=== PATIENT | female | born 1940 | race Caucasian/White ===

== ENCOUNTER 2016-10-31 10:09 | Emergency (ER) | payer MEDICARE ==
[2016-10-31] MEDS ORDERED: Diazepam TAB(*) 5 MG PO ONE (13:00)
[2016-10-31 13:27] LABS: Hematocrit 45 % (35-47); Hemoglobin 15.2 g/dl (12.0-16.0); Mean Corpuscular HGB Conc 34 g/dl (31-36); Mean Corpuscular Hemoglobin 31 pg (27-31); Mean Corpuscular Volume 91 fL (80-97); Mean Platelet Volume 8 um3 (7.4-10.4); Red Blood Count 4.96 10^6/ul (4.0-5.4); Red Cell Distribution Width 14 % (10.5-15); White Blood Count 6.2 10^3/ul (3.5-10.8)
[2016-10-31 13:42] LABS: Albumin 3.7 g/dL (3.2-5.2); BUN/Creatinine Ratio 41.8 (8-20); C Reactive Protein 6.74 mg/L (< 5.00); Calcium 9.4 mg/dL (8.6-10.3); EGFR African American 110.7 (>60); Globulin 2.5 g/dL (2-4); Potassium 4.2 mmol/L (3.5-5.0); Total Bilirubin 0.4 mg/dL (0.2-1.0); Total Protein 6.2 g/dL (6.4-8.9)
--- NOTE | 2016-10-31 13:49 | RAD ---
Indication: Progressive pain in the right sacroiliac region. CT of the pelvis was obtained in the axial plane. Coronal and sagittal reconstructed images were obtained. The sacroiliac joints are intact. There may be some minimal sclerosis at the margins suggestive of some mild sacroiliitis. No fracture is noted. Degenerative changes of both hips are noted. Osteophyte formation is noted. The sacrum demonstrates diffuse osteopenia. There is an anterior abdominal wall hernia containing colon. This is just inferior to the umbilicus. No definite evidence of bowel obstruction is noted. The uterus and ovaries are grossly unremarkable. IMPRESSION: MILD SACROILIITIS WITH NO EVIDENCE OF FRACTURE PELVIS OR SACRUM. DEGENERATIVE CHANGES OF BOTH HIPS ARE NOTED. IF FURTHER UMBILICAL ANTERIOR ABDOMINAL WALL HERNIA CONTAINING COLON.
--- NOTE | 2016-10-31 13:53 | RAD ---
Indication: Back pain. CT of the lumbar spine was obtained in the axial plane. Sagittal and coronal reconstructed images were obtained. The vertebral bodies appear normal in height. No compression fracture is noted. There may be diffuse osteopenia noted. At L5-S1 there is broad-based protrusion flattening the thecal sac. Moderate facet arthropathy is noted bilaterally. No definite central or foraminal stenosis is noted. At L4-L5 degenerative disc disease, broad-based protrusion flattens the thecal sac. There is moderate degree of facet arthropathy. There may be mild to moderate spinal stenosis at the L4-L5 level. At L3-L4 there is broad-based protrusion flattening the thecal sac. There is no central or foraminal stenosis noted. At L2-L3 there is degenerative disc disease with broad-based procedure flattening the thecal sac. No central or foraminal stenosis is noted. At L1-L2 there is no evidence of focal protrusion. No central or foraminal stenosis is noted. At T12-L1 and L1-L2 no evidence of central or foraminal stenosis is noted. IMPRESSION: L4-L5 BROAD-BASED PROTRUSION, FACET AND LIGAMENTOUS HYPERTROPHY RESULTS IN MILD TO MODERATE SPINAL STENOSIS AT THIS LEVEL. AT L5-S1 BROAD-BASED PROTRUSION FLATTENS THE THECAL SAC WITH MODERATE DEGREE OF FACET ARTHROPATHY. THE REMAINDER OF THE DISC LEVELS DEMONSTRATES MILD DEGENERATIVE DISC DISEASE WITHOUT DEFINITE EVIDENCE OF CENTRAL OR FORAMINAL STENOSIS.
[2016-10-31] MEDS ORDERED: Ketorolac INJ* 30 MG/ML 1 ML VIAL IM ONE (14:02)
[2016-10-31] MEDS ORDERED: Dexamethasone IV* 4 MG/ML 5 ML VIAL (20 MG) IVPB ONE (14:02)
[2016-10-31] MEDS ORDERED: Ketorolac INJ* 30 MG/ML 1 ML VIAL IV PUSH ONE (14:38)
[2016-10-31 16:12] VITALS: BP 118/73
[2016-10-31 16:42] LABS: Urine Bilirubin Negative (Negative); Urine Glucose Negative (Negative); Urine Nitrite Negative (Negative)
--- NOTE | 2016-11-07 23:26 | ED ---
Back Pain - HPI Summary HPI Summary: Pt here w/ Rt low back/side pain/spasm. She has a h/o back issues but today is worse than usual. Was seen at on 10/22 and dx'd w/ sacroiliitis - provided w / NSAID's and muscle relaxers. She was rx'd PT and went this past Thu - felt worse after. No relief w/ either pain med rx'd so doubled up on both meds this morning to help her get here. She's here again today because she wants to know what's going on. Pain is worse w/ transition onto/off of the toilet but also has pain trying to lie flat in bed. She's able to bear weight and denies sx into LE's - denies numbness, tingling, weakness. No change in bowel/bladder habits - both are working well. - History of Current Complaint Chief Complaint: EDBackInjuryPain Stated Complaint: BACK PAIN Time Seen by Provider: 10/31/16 12:30 Hx Obtained From: Patient Pain Intensity: 0 Pain Scale Used: 0-10 Numeric - Allergies/Home Medications Allergies/Adverse Reactions: Allergies Allergy/AdvReac Type Severity Reaction Status Date / Time Penicillins Allergy Intermediate Hives Verified 10/31/16 10:15 Home Medications: Home Medications Acetaminophen TAB* [Tylenol TAB*] 650 mg PO Q6H PRN 10/31/16 [History Confirmed 10/31/16] Meloxicam(NF) [Mobic(NF)] 7.5 mg PO DAILY 10/31/16 [History Confirmed 10/31/16] PMH/Surg Hx/FS Hx/Imm Hx Previously Healthy: No - struggling w/ back pain Endocrine/Hematology History: Denies: Hx Anticoagulant Therapy, Hx Blood Disorders, Autoimmune Disease Cardiovascular History: Denies: Hx Aneurysm GI History: Reports: Hx Gastroesophageal Reflux Disease, Other GI Disorders - hernia repair Musculoskeletal History: Reports: Hx Arthritis, Hx Back Problems - Cancer History Cancer Type, Location and Year: L breast CA Hx Chemotherapy: Yes - BREAST Hx Radiation Therapy: No - Surgical History Surgery Procedure, Year, and Place: L masectomy, hernia, gallbladder, appy, tonsilectomy Infectious Disease History: No Infectious Disease History: Denies: Traveled Outside the [place] in Last 30 Days - Family History Known Family History: Positive: Hypertension - Social History Occupation: Retired Alcohol Use: None Hx Substance Use: No Substance Use Type: Reports: None Hx Tobacco Use: Yes Smoking Status (MU): Former Smoker Type: Cigarettes Length of Time of Smoking/Using Tobacco: 34 years ago Review of Systems Negative: Fever, Chills, Fatigue Negative: Palpitations, Chest Pain Negative: Shortness Of Breath, Cough Negative: Abdominal Pain, Vomiting, Diarrhea, Nausea Negative: burning, dysuria, discharge, frequency, hematuria, incontinence, pain , urgency Musculoskeletal: Other - see HPI Negative: Rash, Bruising Negative: Weakness, Paresthesia, Numbness Positive: Anxious All Other Systems Reviewed And Are Negative: Yes Physical Exam Triage Information Reviewed: Yes Vital Signs On Initial Exam: Initial Vitals Temp Pulse Resp BP Pulse Ox 98.3 F 77 16 148/81 98 10/31/16 10:11 10/31/16 10:11 10/31/16 10:11 10/31/16 10:11 10/31/16 10:11 Vital Signs Reviewed: Yes Appearance: Positive: Well-Appearing, Pain Distress - appears somewhat uncomfortable lying on stretcher Skin: Positive: Warm, Dry - no erythema, no ecchymosis, no lesions Head/Face: Positive: Normal Head/Face Inspection Eyes: Positive: Normal, EOMI, Conjunctiva Clear ENT: Positive: Hearing grossly normal, Pharynx normal Respiratory/Lung Sounds: Positive: Breath Sounds Present Cardiovascular: Positive: Normal, RRR, Pulses are Symmetrical in both Upper and Lower Extremities. Negative: Leg Edema Left, Leg Edema Right Abdomen Description: Positive: Nontender, Soft Bowel Sounds: Positive: Present Musculoskeletal: Positive: Strength/ROM Intact - moving LE's but has Rt lower back pain Neurological: Positive: Normal, Sensory/Motor Intact, Alert, Oriented to Person Place, Time, CN Intact II-III, Reflexes Intact Psychiatric: Positive: Normal - concerned Diagnostics - Vital Signs Vital Signs Temp Pulse Resp BP Pulse Ox 10/31/16 16:27 84 17 10/31/16 16:11 84 17 118/73 95 10/31/16 13:10 16 10/31/16 10:11 98.3 F 77 16 148/81 98 - Laboratory Lab Results: Lab Results 10/31/16 10/31/16 10/31/16 Range/Units 13:15 13:15 13:15 WBC 6.2 (3.5-10.8) 10^3/ul RBC 4.96 (4.0-5.4) 10^6/ul Hgb 15.2 (12.0-16.0) g/dl Hct 45 (35-47) % MCV 91 (80-97) fL MCH 31 (27-31) pg MCHC 34 (31-36) g/dl RDW 14 (10.5-15) % Plt Count 188 (150-450) 10^3/ul MPV 8 (7.4-10.4) um3 Neut % (Auto) 77.9 (38-83) % Lymph % (Auto) 13.1 L (25-47) % Price % (Auto) 5.4 (1-9) % Eos % (Auto) 2.8 (0-6) % Baso % (Auto) 0.8 (0-2) % Absolute Neuts (auto) 4.8 (1.5-7.7) 10^3/ul Absolute Lymphs (auto) 0.8 L (1.0-4.8) 10^3/ul Absolute Monos (auto) 0.3 (0-0.8) 10^3/ul Absolute Eos (auto) 0.2 (0-0.6) 10^3/ul Absolute Basos (auto) 0 (0-0.2) 10^3/ul Absolute Nucleated RBC 0 10^3/ul Nucleated RBC % 0 Sodium 139 (133-145) mmol/L Potassium 4.2 (3.5-5.0) mmol/L Chloride 108 (101-111) mmol/L Carbon Dioxide 29 (22-32) mmol/L Anion Gap 2 (2-11) mmol/L BUN 28 H (6-24) mg/dL Creatinine 0.67 (0.51-0.95) mg/dL Est GFR ( Amer) 110.7 (>60) Est GFR (Non-Af Amer) 86.0 (>60) BUN/Creatinine Ratio 41.8 H (8-20) Glucose 93 (70-100) mg/dL Lactic Acid 0.6 (0.5-2.0) mmol/L Calcium 9.4 (8.6-10.3) mg/dL Total Bilirubin 0.40 (0.2-1.0) mg/dL AST 16 (13-39) U/L ALT 18 (7-52) U/L Alkaline Phosphatase 50 (34-104) U/L C-Reactive Protein 6.74 H (< 5.00) mg/L Total Protein 6.2 L (6.4-8.9) g/dL Albumin 3.7 (3.2-5.2) g/dL Globulin 2.5 (2-4) g/dL Albumin/Globulin Ratio 1.5 (1-3) Urine Color Urine Appearance Urine pH (5-9) Ur Specific [place] (1.010-1.030) Urine Protein (Negative) Urine Ketones (Negative) Urine Blood (Negative) Urine Nitrate (Negative) Urine Bilirubin (Negative) Urine Urobilinogen (Negative) Ur Leukocyte Esterase (Negative) Urine Glucose (Negative) 10/31/16 Range/Units 15:15 WBC (3.5-10.8) 10^3/ul RBC (4.0-5.4) 10^6/ul Hgb (12.0-16.0) g/dl Hct (35-47) % MCV (80-97) fL MCH (27-31) pg MCHC (31-36) g/dl RDW (10.5-15) % Plt Count (150-450) 10^3/ul MPV (7.4-10.4) um3 Neut % (Auto) (38-83) % Lymph % (Auto) (25-47) % Price % (Auto) (1-9) % Eos % (Auto) (0-6) % Baso % (Auto) (0-2) % Absolute Neuts (auto) (1.5-7.7) 10^3/ul Absolute Lymphs (auto) (1.0-4.8) 10^3/ul Absolute Monos (auto) (0-0.8) 10^3/ul Absolute Eos (auto) (0-0.6) 10^3/ul Absolute Basos (auto) (0-0.2) 10^3/ul Absolute Nucleated RBC 10^3/ul Nucleated RBC % Sodium (133-145) mmol/L Potassium (3.5-5.0) mmol/L Chloride (101-111) mmol/L Carbon Dioxide (22-32) mmol/L Anion Gap (2-11) mmol/L BUN (6-24) mg/dL Creatinine (0.51-0.95) mg/dL Est GFR ( Amer) (>60) Est GFR (Non-Af Amer) (>60) BUN/Creatinine Ratio (8-20) Glucose (70-100) mg/dL Lactic Acid (0.5-2.0) mmol/L Calcium (8.6-10.3) mg/dL Total Bilirubin (0.2-1.0) mg/dL AST (13-39) U/L ALT (7-52) U/L Alkaline Phosphatase (34-104) U/L C-Reactive Protein (< 5.00) mg/L Total Protein (6.4-8.9) g/dL Albumin (3.2-5.2) g/dL Globulin (2-4) g/dL Albumin/Globulin Ratio (1-3) Urine Color Yellow Urine Appearance Clear Urine pH 6.0 (5-9) Ur Specific [place] 1.014 (1.010-1.030) Urine Protein Negative (Negative) Urine Ketones Negative (Negative) Urine Blood Negative (Negative) Urine Nitrate Negative (Negative) Urine Bilirubin Negative (Negative) Urine Urobilinogen Negative (Negative) Ur Leukocyte Esterase Negative (Negative) Urine Glucose Negative (Negative) Result Diagrams: 10/31/16 13:15 10/31/16 13:15 Lab Statement: Any lab studies that have been ordered have been reviewed, and results considered in the medical decision making process. Re-Evaluation - Re-Evaluation First Eval Change: Improved Back Pain Course/Dx - Course Course Of Treatment: 76 y.o. female presents w/ Rt sided LBP x weeks, progresively worsening since PT this week. L4-5, L5-S1 w/ broad based protrusion on lumbar CT. Mild sacroiliits and B/L degenerative changes in hips. Sx improved w/ steroids and pain meds. She is able to go home bearing weight and carrying basic ADL's (observed toileting w/o difficulty independently ). Will f/u w/ PCP for re-evaluation and long tx plan. Reviewed danger s/sx of when to return to ED. Pt agrees w/ plan and voices understanding. - Diagnoses Provider Diagnoses: LUMBAR DISC HERNIATION, Arthritis of sacroiliac joint, Degenerative joint disease of both hips Discharge - Discharge Plan Condition: Stable Disposition: HOME Prescriptions: Diazepam TAB(*) [Valium TAB(*)] 5 mg PO BEDTIME PRN #9 tab MDD 1 PRN Reason: Pain predniSONE TAB* [Deltasone TAB*] 40 mg PO DAILY #5 tab Patient Education Materials: Lumbar Disc Herniation (ED) Referrals: Becki Denis MD [Primary Care Provider] - Additional Instructions: Take medications as directed - do not overexert yourself as you have a herniated disc. Follow-up with PCP Thursday as schedule - you may benefit from an MRI and neurosurgery consult *If you develop incontinence of your bladder or bowels and/or weakness in lower extremities, return to ED
== END 2016-10-31 16:27 | disposition home or self-care (01) ==
LOC: ED 10:09
DX: M51.26 Other intervertebral disc displacement, lumbar region (principal); M46.1 Sacroiliitis, not elsewhere classified; M16.0 Bilateral primary osteoarthritis of hip
CPT/HCPCS: 36415; 72131; 72192; 80053; 81003; 83605; 85025; 86140; 96365; 96372; 96374; 96375; 99282; A9270-GY; J1100; J1885

== ENCOUNTER 2017-01-12 19:31 | Emergency (ER) | payer MEDICARE ==
[2017-01-12 19:47] VITALS: BP 139/81
--- NOTE | 2017-01-12 20:47 | UC ---
Ear Complaint HPI - HPI Summary HPI Summary: TOOK HALF OF A MOLDABLE EAR PLUG INTO EAR, SHOVED IT TOO FAR DOWN INTO EAR YESTERDAY, CANNOT GET IT OUT. NO FEVER. NO EAR PAIN. - History of Current Complaint Hx Obtained From: Patient Onset/Duration: Sudden Onset, Lasting Days, Still Present Severity Initially: Mild Severity Currently: Mild Pain Intensity: 0 Pain Scale Used: 0-10 Numeric Associated Signs/Symptoms: Positive: Hearing Loss, Foreign Body Sensation <Jewel Joyce - Last Filed: 01/12/17 20:42> <Saul Mock - Last Filed: 01/15/17 11:09> - History of Current Complaint Chief Complaint: UCEar Stated Complaint: FB IN EAR Time Seen by Provider: 01/12/17 19:41 - Allergies/Home Medications Allergies/Adverse Reactions: Allergies Allergy/AdvReac Type Severity Reaction Status Date / Time Penicillins Allergy Intermediate Hives Verified 10/31/16 10:15 Home Medications: Home Medications Etodolac 300 mg PO 01/12/17 [History] PMH/Surg Hx/FS Hx/Imm Hx Previously Healthy: Yes Endocrine History Of: Denies: Diabetes, Thyroid Disease Cardiovascular History Of: Denies: Cardiac Disorders, Hypertension Respiratory History Of: Denies: COPD, Asthma GI/ History Of: Denies: Ulcer Cancer History Of: Reports: Breast Cancer - LEFT 08/06 Other History Of: Negative For: Anticoagulant Therapy - Surgical History Surgical History: Yes Surgery Procedure, Year, and Place: L masectomy, hernia, gallbladder, appy, tonsilectomy - Family History Known Family History: Positive: Hypertension - Social History Occupation: Retired Lives: With Family Alcohol Use: None Substance Use Type: None Smoking Status (MU): Former Smoker Type: Cigarettes Length of Time of Smoking/Using Tobacco: 34 years ago <Jewel Joyce - Last Filed: 01/12/17 20:42> Review of Systems Constitutional: Negative Skin: Negative Eyes: Negative ENT: Ear Ache Respiratory: Negative Cardiovascular: Negative Gastrointestinal: Negative Genitourinary: Negative Motor: Negative Neurovascular: Negative Musculoskeletal: Negative Neurological: Negative Psychological: Negative All Other Systems Reviewed And Are Negative: Yes <Jewel Joyce - Last Filed: 01/12/17 20:42> Physical Exam Triage Information Reviewed: Yes Appearance: Well-Appearing, No Pain Distress, Well-Nourished Vital Signs: Initial Vital Signs Temp 97.8 F 01/12/17 19:43 Pulse 78 01/12/17 19:43 Resp 18 01/12/17 19:43 BP 139/81 01/12/17 19:43 Pulse Ox 98 01/12/17 19:43 Eye Exam: Normal Eyes: Positive: Conjunctiva Clear ENT: Positive: Hearing grossly normal, Pharynx normal, TMs normal - AFTER FB REMOVAL, Other: - MOLDABLE EAR PLUG REMOVED FROM RIGHT EAR USING ALLIGATOR FORCEPS, AND IRRIGATION. Dental Exam: Normal Neck exam: Normal Neck: Positive: Supple, Nontender, No Lymphadenopathy Respiratory Exam: Normal Respiratory: Positive: Chest non-tender, Lungs clear, Normal breath sounds, No respiratory distress, No accessory muscle use Cardiovascular Exam: Normal Cardiovascular: Positive: RRR, No Murmur, Pulses Normal, Brisk Capillary Refill Abdominal Exam: Normal Abdomen Description: Positive: Nontender, No Organomegaly Musculoskeletal Exam: Normal Musculoskeletal: Positive: Strength Intact, ROM Intact Neurological Exam: Normal Psychological Exam: Normal Psychological: Positive: Normal Response To Family Skin Exam: Normal <Jewel Joyce - Last Filed: 01/12/17 20:42> Vital Signs: Initial Vital Signs Temp 97.8 F 01/12/17 19:43 Pulse 78 01/12/17 19:43 Resp 18 01/12/17 19:43 BP 139/81 01/12/17 19:43 Pulse Ox 98 01/12/17 19:43 <Saul Mock - Last Filed: 01/15/17 11:09> Ear Complaint Course/Dx - Differential Dx/Diagnosis Differential Diagnosis/HQI/PQRI: Cellulitis, Foreign Body, Otitis Externa, Otitis Media, Trauma, URI Provider Diagnoses: FOREIGN BODY REMOVAL (MOLDABLE EAR PLUG) REMOVED FROM RIGHT EXTERNAL AUDITORY CANAL <Jewel Joyce - Last Filed: 01/12/17 20:42> - Course Course Of Treatment: I was available for consultation. This patient was seen by mid level provider. The patient was not presented, seen, or examined by me. WR. <Saul Mock - Last Filed: 01/15/17 11:09> Discharge <Jewel Joyce - Last Filed: 01/12/17 20:42> <Saul Mock - Last Filed: 01/15/17 11:09> - Discharge Plan Condition: Stable Disposition: HOME Patient Education Materials: Ear Foreign Body (ED) Referrals: Becki Denis MD [Primary Care Provider] -
== END 2017-01-12 20:34 | disposition home or self-care (01) ==
LOC: UCEAST 19:31
DX: T16.1XXA Foreign body in right ear, initial encounter (principal); X58.XXXA Exposure to other specified factors, initial encounter; Y93.9 Activity, unspecified; Y92.9 Unspecified place or not applicable; Z90.49 Acquired absence of other specified parts of digestive tract; Z88.0 Allergy status to penicillin; Z87.891 Personal history of nicotine dependence
CPT/HCPCS: 99212; G0463

== ENCOUNTER 2017-06-16 11:05 | Emergency (ER) | payer MEDICARE ==
[2017-06-16] MEDS ORDERED: NS 0.9% 1000 ML* 1,000 ML IV ONE (12:12)
[2017-06-16 13:11] LABS: Hematocrit 45 % (35-47); Hemoglobin 15.1 g/dl (12.0-16.0); Mean Corpuscular HGB Conc 33 g/dl (31-36); Mean Corpuscular Hemoglobin 31 pg (27-31); Mean Corpuscular Volume 93 fL (80-97); Mean Platelet Volume 8 um3 (7.4-10.4); Red Blood Count 4.85 10^6/ul (4.0-5.4); Red Cell Distribution Width 14 % (10.5-15); White Blood Count 11.5 10^3/ul (3.5-10.8)
[2017-06-16 13:18] LABS: Add Diff/Slide Review? Slide Review Added
[2017-06-16 13:30] LABS: ALT 27 U/L (7-52); AST 14 U/L (13-39); Albumin 3.4 g/dL (3.2-5.2); Alkaline Phosphatase 56 U/L (34-104); Anion Gap 4 mmol/L (2-11); BUN/Creatinine Ratio 23.9 (8-20); Blood Urea Nitrogen 17 mg/dL (6-24); C Reactive Protein 179.83 mg/L (< 5.00); CO2 Carbon Dioxide 30 mmol/L (22-32); Calcium 9.4 mg/dL (8.6-10.3); Chloride 103 mmol/L (101-111); EGFR African American 103.2 (>60); EGFR Non-African American 80.3 (>60); Globulin 3.2 g/dL (2-4); Glucose 126 mg/dL (70-100); Lipase < 10 U/L (11.0-82.0); Potassium 3.9 mmol/L (3.5-5.0); Sodium 137 mmol/L (133-145); Total Protein 6.6 g/dL (6.4-8.9)
[2017-06-16] MEDS ORDERED: Iohexol 300* (CONTRAST) 10 ML SDV IV ONE (14:13)
[2017-06-16 14:20] LABS: Urine Bacteria Absent (Absent); Urine Bilirubin Negative (Negative); Urine Glucose Negative (Negative); Urine Nitrite Negative (Negative)
--- NOTE | 2017-06-16 15:14 | RAD ---
INDICATION: Abdominal pain. COMPARISON: Comparison is made with a prior CT of the pelvis from October 31, 2016. TECHNIQUE: A CT scan of the abdomen and pelvis was performed with intravenous and oral contrast following intravenous injection of 112 ml of Omnipaque 300 nonionic contrast. Contiguous axial sections were obtained from the lung bases through the symphysis pubis. Images were reconstructed in the coronal and sagittal planes. FINDINGS: The lung bases are clear. No pleural effusion is present. There is a Bochdalek hernia present at the left lung base containing retroperitoneal fat. The liver is mildly enlarged and decreased in attenuation consistent with fatty infiltration. There is a simple cyst present in the left hepatic lobe measuring 2.8 cm in size. The patient appears to be status post cholecystectomy. The pancreas appears to be within normal limits. The kidneys and adrenal glands are normal in size. No hydronephrosis is seen. No significant focal renal abnormality is seen. The aorta is normal in caliber and demonstrates homogeneous contrast opacification. No significant enlarged retroperitoneal lymph nodes are seen. The stomach, small and large bowel appear nondistended. The patient is status post appendectomy by history. There is moderate sigmoid diverticulosis. There is diffuse thickening of the wall of the sigmoid colon and rectum most consistent with colitis. There is a periumbilical hernia containing nondistended transverse colon which is unchanged from the prior study. There is a mesenteric mass with associated calcification present in the central abdomen with tethering of adjacent small bowel loops. This is irregular in shape measuring 4.2 x 3.0 x 4.5 cm in size. This is unchanged from the prior CT of the pelvis study. The uterus is upper limits of normal in size and anteverted in position. No free intraperitoneal air or fluid is seen. No significant focal osseous abnormality is seen. IMPRESSION: 1. MESENTERIC MASS DIFFERENTIAL DIAGNOSIS WOULD INCLUDE MESENTERIC FIBROSIS VERSUS A MALIGNANT LESION. CONSIDER PET IMAGING AND BIOPSY FOR FURTHER EVALUATION. 2. THICKENING OF THE WALL OF THE SIGMOID COLON AND RECTUM MOST CONSISTENT WITH COLITIS. 3. ANTERIOR ABDOMINAL WALL HERNIA CONTAINING TRANSVERSE COLON, UNCHANGED. 4. HEPATIC STEATOSIS.
[2017-06-16 16:12] VITALS: BP 154/89
--- NOTE | 2017-06-16 20:40 | ED ---
Eugenio Kaba Rebecca, scribed for Saul Real MD on 06/16/17 at 1145 . Abdominal Pain/Female - HPI Summary HPI Summary: Pt is a 76 y/o F who presents to ED c/o abd pain. Pain began 3 days ago and has been intermittent since onset, located in the lower abdomen. Pain is currently not present, though when present, pain is severe, characterized as cramping. Sx aggravated by nothing, alleviated by BM. Additionally c/o constipation. Denies abdominal distension, fever, chills, vomiting. PMHx hernia. PSHx cholecystectomy , appy, hernia repair. - History of Current Complaint Chief Complaint: EDAbdPain Stated Complaint: ABD PAIN Time Seen by Provider: 06/16/17 11:30 Hx Obtained From: Patient Timing: Intermittent Episode Lasting Severity Initially: Severe Severity Currently: None Pain Intensity: 0 Pain Scale Used: 0-10 Numeric Location: Other - Lower abdomen Character: Cramping Aggravating Factor(s): Nothing Alleviating Factor(s): Bowel Movement Associated Signs and Symptoms: Positive: Constipation. Negative: Fever, Vomiting Allergies/Adverse Reactions: Allergies Allergy/AdvReac Type Severity Reaction Status Date / Time Penicillins Allergy Intermediate Hives Verified 06/16/17 11:08 PMH/Surg Hx/FS Hx/Imm Hx Endocrine/Hematology History: Denies: Hx Anticoagulant Therapy, Hx Blood Disorders, Hx Diabetes, Hx Thyroid Disease Cardiovascular History: Denies: Hx Aneurysm, Hx Hypertension Respiratory History: Denies: Hx Asthma, Hx Chronic Obstructive Pulmonary Disease (COPD) GI History: Reports: Hx Gastroesophageal Reflux Disease, Other GI Disorders - hernia repair Denies: Hx Ulcer Musculoskeletal History: Reports: Hx Arthritis, Hx Back Problems - Cancer History Cancer Type, Location and Year: L breast CA Hx Chemotherapy: Yes - BREAST Hx Radiation Therapy: No - Surgical History Surgery Procedure, Year, and Place: L masectomy, hernia, gallbladder, appy, tonsilectomy Infectious Disease History: Denies: Hx Hepatitis, Hx Human Immunodeficiency Virus (HIV), Traveled Outside the [place] in Last 30 Days - Family History Known Family History: Positive: Hypertension, Diabetes - Social History Alcohol Use: None Hx Substance Use: No Substance Use Type: Reports: None Hx Tobacco Use: Yes Smoking Status (MU): Former Smoker Type: Cigarettes Length of Time of Smoking/Using Tobacco: 34 years ago Review of Systems Negative: Fever, Chills Positive: Abdominal Pain - Lower abdomen, Other - Constipation; NEGATIVE: abdominal distension. Negative: Vomiting All Other Systems Reviewed And Are Negative: Yes Physical Exam Triage Information Reviewed: Yes Vital Signs On Initial Exam: Initial Vitals Temp Pulse Resp BP Pulse Ox 97.9 F 100 20 143/81 94 06/16/17 11:08 06/16/17 11:08 06/16/17 11:08 06/16/17 11:08 06/16/17 11:08 Vital Signs Reviewed: Yes Appearance: Positive: Well-Appearing, No Pain Distress Skin: Positive: Warm, Skin Color Reflects Adequate Perfusion Head/Face: Positive: Normal Head/Face Inspection Eyes: Positive: EOMI ENT: Positive: Normal ENT inspection Neck: Positive: Nontender Respiratory/Lung Sounds: Positive: Clear to Auscultation, Breath Sounds Present Cardiovascular: Positive: RRR. Negative: Murmur Abdomen Description: Positive: Other: - abdominal wall hernia right of midline and below level of umbilicus. Not incarcerated. Musculoskeletal: Positive: Strength/ROM Intact Neurological: Positive: Sensory/Motor Intact, Alert, Oriented to Person Place, Time, CN Intact II-III Psychiatric: Positive: Normal - Pedro Coma Scale Best Eye Response: 4 - Spontaneous Best Motor Response: 6 - Obeys Commands Best Verbal Response: 5 - Oriented Diagnostics - Vital Signs Vital Signs Temp Pulse Resp BP Pulse Ox 06/16/17 11:08 97.9 F 100 20 143/81 94 - Laboratory Result Diagrams: 06/16/17 12:55 06/16/17 12:55 Lab Statement: Any lab studies that have been ordered have been reviewed, and results considered in the medical decision making process. - CT CT Abd/Pel CT Interpretation: Positive (See Comments) - 1. MESENTERIC MASS DIFFERENTIAL DIAGNOSIS WOULD INCLUDE MESENTERIC FIBROSIS VERSUS A MALIGNANT LESION. CONSIDER PET IMAGING AND BIOPSY FOR FURTHER EVALUATION. 2. THICKENING OF THE WALL OF THE SIGMOID COLON AND RECTUM MOST CONSISTENT WITH COLITIS. 3. ANTERIOR ABDOMINAL WALL HERNIA CONTAINING TRANSVERSE COLON, UNCHANGED. 4. HEPATIC STEATOSIS. CT Interpretation Completed By: Radiologist - EKG 1242 Cardiac Rate: NL - 92 bpm EKG Rhythm: Sinus Rhythm EKG Interpretation: No STEMI Re-Evaluation - Re-Evaluation First Eval Re-Evaluation Time: 13:49 Change: Improved Comment: Pt reports she has had BM and feels significantly better. Second Eval Re-Evaluation Time: 15:22 Change: Improved Comment: Pt is feeling significantly better, her sx have completely resolved. Abdominal Pain Fem Course/Dx - Course Course Of Treatment: Elevated BP noted and advised to f/u with PCP. She is completely comfortable with a benign abdomen. Will DC her to home. CT finding discussed with Dr Vanessa her PMD. - Diagnoses Provider Diagnoses: Abdominal wall hernia, Mesenteric mass, Constipation, Hypertension - Provider Notifications Discussed Care Of Patient With: Becki Denis Time Discussed With Above Provider: 15:40 Instructed by Provider To: Other - Discussed CT results and she advised D/C and a follow up in her office this week. Discharge - Discharge Plan Condition: Good Disposition: HOME Patient Education Materials: Abdominal Pain (ED) Referrals: Becki Denis MD [Primary Care Provider] - 1 Day Additional Instructions: You have a mesenteric tumor on your ct scan that needs follow up with your doctor this week. Please call Dr Vanessa as soon as possible to see. The documentation as recorded by the Eugenio walker Rebecca accurately reflects the service I personally performed and the decisions made by me, Saul Real MD.
== END 2017-06-16 16:22 | disposition home or self-care (01) ==
LOC: ED 11:05
DX: R19.07 Generalized intra-abdominal and pelvic swelling, mass and lump (principal); K59.00 Constipation, unspecified; Z87.891 Personal history of nicotine dependence; K43.9 Ventral hernia without obstruction or gangrene; I10 Essential (primary) hypertension
CPT/HCPCS: 36415; 74177; 80053; 81003; 81015; 83605; 83690; 84484; 85025; 85610; 86140; 87086; 93005; 99283; Q9967